=== PATIENT | female | born 1980 | race Caucasian/White ===

== ENCOUNTER 2025-03-14 21:35 | Emergency (ER) | payer OTHER ==
[~2025-03-14] VITALS: Ht 172.7 cm; Wt 136.4 kg
[2025-03-14 21:50] VITALS: TEMP 99.5
[2025-03-14 23:12] VITALS: BP 138/70; PULSE 85; RESP 16; O2SAT 98
[2025-03-14] MEDS ORDERED: LIDOCAINE 5% TRANSDERMAL PATCH TD ONE (23:30)
[2025-03-14] MEDS: KETOROLAC TROMETHAMINE 30 MG/ML VIAL IM ONE (23:30)
[2025-03-14] MEDS ORDERED: HYDR-4062 PO (23:31)
== END 2025-03-15 01:08 | disposition home or self-care (01) ==
LOC: EMS 21:38
DX: M54.50 Low back pain, unspecified (principal); G89.29 Other chronic pain; I10 Essential (primary) hypertension; G43.909 Migraine, unspecified, not intractable, without status migrainosus; Z96.659 Presence of unspecified artificial knee joint; Z98.84 Bariatric surgery status; Z88.6 Allergy status to analgesic agent; Z79.899 Other long term (current) drug therapy
CPT/HCPCS: 99283; 96372; J1885